=== PATIENT | female | born 1980 | race Two or more races ===

== ENCOUNTER → 2019-09-20 | Outpatient (CLI) | payer OTHER ==
--- NOTE | 2019-09-20 13:21 | RAD ---
Study: MRI of the left hip without contrast INDICATION: Worsening left hip pain after a fall 5+ years ago. COMPARISON: None. TECHNIQUE: Multiplanar MR imaging of the left hip performed without the use of intravenous or intra-articular contrast. FINDINGS: Bones/hip: End-stage left hip arthrosis with [id number] at the superior joint space, flattened and deformed superior humeral head, osteophytosis and extensive subchondral cystic change. Acetabular undercoverage of the femoral head which is subluxed laterally. Even with degenerative remodeling of the acetabulum it is presumed that the acetabulum is dysplastic on a developmental basis. Coxa valga noted as well. Labrum/cartilage: Macerated labrum. Diffusely absent cartilage. Ligamentum teres: Not well delineated and presumably torn. Greater trochanteric bursa: No fluid distention of the bursa. Musculotendinous: Generalized muscular atrophy and varying degrees of fatty infiltration. No high-grade/full-thickness tendon abnormality. Miscellaneous: Several ovarian follicles and the left. Partially imaged free fluid within the deep pelvis is likely physiologic given patient age. IMPRESSION: End-stage left hip arthrosis with [id number], superior/lateral subluxation of the femoral head and degenerative deformity across the articular surfaces. Osteophytosis and extensive subchondral cystic change. 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 Diffusely absent cartilage and a macerated labrum. In keeping with the degree of arthrosis, generalized muscular atrophy and varying extent of fatty infiltration. Electronically signed by: TERESA BAGLEY MD (09/20/2019 1:18 PM) [id number]
== END ==
LOC: MRI 12:23
PROVIDERS: ATTEND Family Medicine
DX: M16.32 Unilateral osteoarthritis resulting from hip dysplasia, left hip (principal); M62.58 Muscle wasting and atrophy, not elsewhere classified, other site
CPT/HCPCS: 73721